=== PATIENT | female | born 1940 | race Caucasian/White ===

== ENCOUNTER 2016-07-10 08:55 | Outpatient (CLI) | payer OTHER ==
[~2016-07-10] VITALS: Ht 157.5 cm; Wt 100.5 kg
[~2016-07-10 08:55] MED LIST: ACET65TA OR; ASPI1TAB PO; ASPI325T OR; AZOPT OU; AZOPT PO; BIOT10005 PO; BISA10SU2; BRIM1OPD OU; CALC600T10 PO; CALCTAB93 PO; COUMADIN; DULCOLAX OR; FERR325T OR; FIBE625T27 PO; FURO20TA PO; FURO20TA2 PO; LUMIGAN OU; MECL-68 PO; METO50TA2 PO; METROPROLOL PO; MILKSUS OR; MULTIVIT PO; OXYC10TA12 OR; PERC5TAB8 OR; PERC7.5T8 OR; POTA10CA PO; TOVI8TAB PO; TRAV04OPD OD; VITMTA PO; [UNRECOGNIZED DRUG - OTHER]; fiber con PO
[2016-07-10] MEDS ORDERED: IRON DEXTRAN INJ 25 MG in NS 50 ML IV ONE (10:00)
[2016-07-10] MEDS ORDERED: IRON DEXTRAN INJ 975 MG in NS 250 ML IV ONE (11:00)
== END 2016-07-10 14:00 | disposition home or self-care (01) ==
LOC: M INFU 08:55
PROVIDERS: ATTEND Internal Medicine Nephrology
DX: D50.9 Iron deficiency anemia, unspecified (principal); Z79.82 Long term (current) use of aspirin; Z79.899 Other long term (current) drug therapy
CPT/HCPCS: 96365; 96366; J1750

== ENCOUNTER → 2017-04-03 | Outpatient (CLI) | payer OTHER ==
[~2017-04-03] MED LIST changes: -BIOT10005 PO; +BIOT10008 PO; -CALC600T10 PO; +CALC600T31 PO; -METO50TA2 PO; +METO50TA7 PO
--- NOTE | 2017-04-03 15:04 | REP ---
LEFT SHOULDER SERIES: Three views of the left shoulder are performed. There is no acute fracture or dislocation. There is mild narrowing and spurring at the acromioclavicular and glenohumeral joints. There is an oval calcification medial to the humeral neck measuring 13 x 5 mm. This could represent a tendinous or other soft tissue calcification. IMPRESSION: Degenerative changes. Signed by George Saucedo MD 04/03/2017 04:13 P
== END ==
LOC: M CLY 13:34
PROVIDERS: ATTEND Family Medicine
DX: M19.012 Primary osteoarthritis, left shoulder (principal)
CPT/HCPCS: 73030; G0463

== ENCOUNTER → 2017-07-09 | Outpatient (REF) | payer OTHER ==
[2017-07-09 19:52] LABS: ALBUMIN 3.5 GM/DL (3.2-5.2); ALBUMIN/GLOBULIN RATIO 0.85 (1.00-1.93); ALKALINE PHOSPHATASE 119 U/L (45-117); ALT/SGPT 12 U/L (12-78); ANION GAP 6 MEQ/L (8-16); AST/SGOT 11 U/L (7-37); BILIRUBIN,TOTAL 0.3 MG/DL (0.2-1.0); BLOOD UREA NITROGEN 30 MG/DL (7-18); CALCIUM LEVEL 8.8 MG/DL (8.8-10.2); CARBON DIOXIDE LEVEL 29 MEQ/L (21-32); CHLORIDE LEVEL 104 MEQ/L (98-107); CHOLESTEROL LEVEL 235 MG/DL (<200); CHOLESTEROL RISK RATIO 6.025 (<5); CREATININE FOR GFR 1.27 MG/DL (0.55-1.02); FREE T4 1.22 NG/DL (0.76-1.46); GLOMERULAR FILTRATION RATE 43.3 (>39); GLUCOSE, FASTING 93 MG/DL (83-110); HDL CHOLESTEROL 39 MG/DL (>40); LDL CHOLESTEROL 159.8 MG/DL (<100); NON-HDL-C 196 MG/DL; POTASSIUM SERUM 4.8 MEQ/L (3.5-5.1); SODIUM LEVEL 139 MEQ/L (136-145); TOTAL PROTEIN 7.6 GM/DL (6.4-8.2); TRIGLYCERIDES LEVEL 181 MG/DL (<150)
== END ==
LOC: M SFHCCLAY 11:53
DX: Z00.00 Encounter for general adult medical examination without abnormal findings (principal); Z79.899 Other long term (current) drug therapy
CPT/HCPCS: 84443

== ENCOUNTER → 2017-08-13 | Outpatient (REF) | payer OTHER ==
[2017-08-14 14:20] LABS: FERRITIN 331 NG/ML (8-252); IRON (FE) 31 UG/DL (50-170); PERCENT SATURATION 11.3 % (13.2-45.0); TOTAL IRON BINDING CAPACITY 275 UG/DL (250-450)
== END ==
LOC: M LAB REF 13:45
DX: N39.0 Urinary tract infection, site not specified (principal); D50.9 Iron deficiency anemia, unspecified
CPT/HCPCS: 83550

== ENCOUNTER 2017-08-26 08:57 | Outpatient (CLI) | payer OTHER ==
[2017-08-26] MEDS: IRON SUCROSE 25 MG in NS 50 ML IV (09:37)
[2017-08-26] MEDS: IRON SUCROSE 475 MG in NS 250 ML IV (10:46)
== END 2017-08-26 14:40 | disposition home or self-care (01) ==
LOC: M INFU 08:57
DX: D50.9 Iron deficiency anemia, unspecified (principal); Z95.4 Presence of other heart-valve replacement; Z85.038 Personal history of other malignant neoplasm of large intestine; Z79.82 Long term (current) use of aspirin; Z79.899 Other long term (current) drug therapy
CPT/HCPCS: J1756

== ENCOUNTER → 2017-11-09 | Outpatient (REF) | payer OTHER ==
[2017-11-09 19:20] LABS: FOLATE 8.8 NG/ML; VITAMIN B12 LEVEL 323 PG/ML
[2017-11-09 19:28] LABS: FERRITIN 387 NG/ML (8-252); IRON (FE) 48 UG/DL (50-170); PERCENT SATURATION 19.8 % (13.2-45.0); TOTAL IRON BINDING CAPACITY 243 UG/DL (250-450)
== END ==
LOC: M LAB REF 17:15
DX: D50.9 Iron deficiency anemia, unspecified (principal)
CPT/HCPCS: 82746

== ENCOUNTER → 2018-01-11 | Outpatient (REF) | payer OTHER ==
[2018-01-11 18:03] LABS: ANION GAP 11 MEQ/L (8-16); BLOOD UREA NITROGEN 29 MG/DL (7-18); CARBON DIOXIDE LEVEL 26 MEQ/L (21-32); CHLORIDE LEVEL 105 MEQ/L (98-107); CREATININE FOR GFR 1.39 MG/DL (0.55-1.30); GLOMERULAR FILTRATION RATE 38.9 (>39); GLUCOSE, FASTING 105 MG/DL (70-100); POTASSIUM SERUM 4.4 MEQ/L (3.5-5.1); SODIUM LEVEL 142 MEQ/L (136-145)
== END ==
LOC: M LRY 16:13
DX: I10 Essential (primary) hypertension (principal)
CPT/HCPCS: 80048

== ENCOUNTER → 2018-05-12 | Outpatient (REF) | payer OTHER ==
[2018-05-12 19:19] LABS: FERRITIN 446 NG/ML (8-252); IRON (FE) 66 UG/DL (50-170); PERCENT SATURATION 24.2 % (13.2-45.0); TOTAL IRON BINDING CAPACITY 273 UG/DL (250-450)
== END ==
LOC: M LAB REF 17:14
DX: D50.9 Iron deficiency anemia, unspecified (principal)
CPT/HCPCS: 83550

== ENCOUNTER → 2018-05-31 | Outpatient (CLI) | payer OTHER | LOC: M RAD 11:22 | DX: N17.9 Acute kidney failure, unspecified (principal); I50.32 Chronic diastolic (congestive) heart failure; I12.9 Hypertensive chronic kidney disease with stage 1 through stage 4 chronic kidney disease, or unspecified chronic kidney disease | CPT/HCPCS: 76775 ==

== ENCOUNTER 2018-10-15 22:29 | Inpatient (IN) | payer MEDICARE, OTHER ==
[~2018-10-15] VITALS: Ht 154.9 cm; Wt 100.0 kg
[~2018-10-15 22:29] MED LIST changes: -ASPI1TAB PO; +ASPI81TA26 PO; +KLOR10TA76 PO; -POTA10CA PO
[2018-10-15 23:08] LABS: BASO # 0.1 10^3/uL (0.0-0.2); BASO % 0.8 % (0.0-1.0); EOS # 0.4 10^3/uL (0.0-0.50); EOS % 4.4 % (0.0-3.0); HEMATOCRIT 34.8 % (36.0-47.0); LYMPH # 0.7 10^3/uL (1.5-4.5); MEAN CORPUSCULAR HEMOGLOBIN 29.2 pg (27.0-33.0); MEAN CORPUSCULAR HGB CONC 31.6 g/dl (32.0-36.5); MEAN CORPUSCULAR VOLUME 92.3 fl (80.0-96.0); MONO # 0.7 10^3/uL (0.0-0.8); MONO % 6.6 % (0.0-5.0); NEUTROPHILS # 8.1 10^3/uL (1.8-7.7); NEUTROPHILS % 80.7 % (36.0-66.0); PLATELET COUNT, AUTOMATED 309 10^3/uL (150-450); RED BLOOD COUNT 3.77 10^6/uL (4.00-5.40)
--- NOTE | 2018-10-15 23:29 | REPVR ---
EXAM: CT Head Without Contrast EXAM DATE/TIME: 10/15/2018 11:00 PM CLINICAL HISTORY: 78 years old, female; Signs and symptoms; Dizziness TECHNIQUE: Imaging protocol: Axial computed tomography images of the head/brain without contrast. Radiation optimization: All CT scans at this facility use at least one of these dose optimization techniques: automated exposure control; mA and/or kV adjustment per patient size (includes targeted exams where dose is matched to clinical indication); or iterative reconstruction. COMPARISON: CT Head without contrast 06/12/2016 2:47 PM FINDINGS: Brain: There is minimal patchy low attenuation of deep white matter. 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 Ventricles: Normal. No ventriculomegaly. Bones/joints: Unremarkable. No acute fracture. Sinuses: Visualized sinuses are unremarkable. No acute sinusitis. Mastoid air cells: Opacification of some left mastoid air cells. Auditory system: Debris in the left external auditory canal. Soft tissues: Unremarkable. IMPRESSION: 1. There has been little change from 06/12/2016. No acute interval intracranial process is identified. 2. Minimal chronic ischemic white matter change and small old right posterior cerebellar infarct. 3. Minimal fluid in left mastoid air cells at the tip. Electronically signed by: Samuel Madrid On 10/15/2018 23:29:14 PM
[2018-10-15 23:30] LABS: ALBUMIN 3.1 GM/DL (3.2-5.2); ALT/SGPT 19 U/L (12-78); BILIRUBIN,TOTAL 0.2 MG/DL (0.2-1.0); BLOOD UREA NITROGEN 32 MG/DL (7-18); CALCIUM LEVEL 8.3 MG/DL (8.8-10.2); CARBON DIOXIDE LEVEL 30 MEQ/L (21-32); CHLORIDE LEVEL 104 MEQ/L (98-107); GLOMERULAR FILTRATION RATE 30.8 (>32); GLUCOSE, FASTING 139 MG/DL (70-100); POTASSIUM SERUM 4.7 MEQ/L (3.5-5.1); SODIUM LEVEL 138 MEQ/L (136-145); TOTAL PROTEIN 7.4 GM/DL (6.4-8.2)
[2018-10-15] MEDS ORDERED: NS 500 ML IV ONE (23:30)
[2018-10-15] MEDS ORDERED: MECLIZINE 25 MG TABLET PO ONE (23:30)
[2018-10-16 00:05] LABS: INR 1.04; PARTIAL THROMBOPLASTIN TIME 27.9 SECONDS (25.4-37.6); PROTHROMBIN TIME 13.7 SECONDS (12.1-14.4)
[2018-10-16 00:14] LABS: CK-MB VALUE MASS < 1.0 NG/ML (<3.6); CPK CREATINE PHOSPHOKINASE 58 U/L (26-192); MB/CK RELATIVE INDEX 1.72 (< OR =4); TROPONIN I < 0.02 NG/ML (< 0.10)
[2018-10-16] MEDS ORDERED: TIMO0.5S39 OU (01:28)
[2018-10-16] MEDS ORDERED: BIOT10009 PO (01:28)
[2018-10-16] MEDS ORDERED: TOVI4TAB PO (01:28)
[2018-10-16] MEDS ORDERED: FIBE625T PO (01:31)
[2018-10-16] MEDS ORDERED: BRIM1OPD OU (01:56)
[2018-10-16 03:00] VITALS: BP 149/60
[2018-10-16] MEDS ORDERED: NYSTATIN 100,000 UNITS/GM TOPICAL PWD 15 GM TOP PRN (03:45)
--- NOTE | 2018-10-16 04:01 | HPEPDOC ---
General Date of Admission Oct 16, 2018 at 01:40 Chief Complaint The patient is a 78-year-old female admitted with a reason for visit of TIA. History of Present Illness 78-year-old female with past medical history of hypertension, dyslipidemia, aortic valve replacement, history of chronic vertigo, and grade 1 diastolic congestive heart failure presents to the ER with a chief complaint of slurring of speech, difficulty swallowing, and intractable vertigo of sudden onset yesterday evening around 5:30 PM. The patient states that she was talking on the phone when she realized that she was having difficulty speaking. The patient's daughter came home within 30 minutes, and also noted that the patient was slurring her speech and offered her a glass of water. The patient apparently had difficulty swallowing. During this time, the patient also had dizziness. The slurring of speech resolved within 30 minutes. However, some difficulty swallowing and the dizziness remains, although the patient states that this has significantly improved. She denied any acute complaints of visual blurring, facial droop, numbness/weakness/tingling in any extremity, or any bleeds of chest pain, palpitations, abdominal pain, or any nausea/vomiting/diarrhea. In the ER, a CT scan of the head revealed no acute findings. The patient will be admitted under the hospitalist service for further evaluation and management. Home Medications Scheduled Aspirin (Aspirin EC) 81 Mg Tab, 81 MG PO DAILY, (Reported) Biotin (Biotin) 1,000 Mcg Tab.chew, 1,000 MCG PO DAILY, (Reported) Brimonidine Tartrate (Alphagan P) 0.1% Drops, 1 DROP OU BID, (Reported) Calcium Polycarbophil (Fibercon) 625 Mg Tablet, 625 MG PO DAILY, (Reported) Fesoterodine Fumarate (Toviaz) 4 Mg Tab.er.24h, 4 MG PO QHS, (Reported) Meclizine HCl (Meclizine HCl) 25 Mg Tab, 25 MG PO BID, (Reported) Metoprolol Tartrate (Metoprolol Tartrate) 50 Mg Tab, 50 MG PO BID, (Reported) Timolol Maleate (Timolol Maleate) 0.5% Drop.daily, 1 DROP OU BID, (Reported) Travoprost (Travatan Z) 50 Drop/2.5 Ml Soln, 1 DROP OD QHS, (Reported) Scheduled PRN Furosemide (Furosemide) 20 Mg Tab, 20 MG PO Q2D PRN for FLUID RETENTION, (Reported) TAKES POTASSIUM WHEN SHE TAKES THIS Potassium Chloride (Klor-Con M10) 10 Meq Tabcr, 10 MEQ PO Q2D PRN for FLUID RETENTION, (Reported) TAKES WHEN SHE TAKES FUROSEMIDE Allergies Coded Allergies: No Known Allergies (Verified , 07/05/03) Past Medical History Medical History As noted in HPI. Surgical History Aortic valve replacement in 2008, right knee replacement in 2009 Social History * Smoker: Denies Alcohol: Denies Drugs: denies Review of Systems Other systems 10 point review of systems negative unless otherwise specified in HPI. Physical Examination General Exam: Positive: Alert, Cooperative, No Acute Distress Eye Exam: Positive: PERRLA, EOMI; Negative: Sclera icteric, Ptosis ENT Exam: Positive: Atraumatic, Mucous membr. moist/pink Neck Exam: Negative: JVD Chest Exam: Positive: Clear to auscultation, Normal air movement Heart Exam: Positive: Rate Normal, Normal S1, Normal S2 Abdomen Exam: Positive: Soft; Negative: Tenderness Extremity Exam: Negative: Tenderness, Swelling Neuro Exam: Positive: Normal Speech, Strength at 5/5 X4 ext, Normal Tone, Sensation Intact, Cranial Nerves 3-12 NL Psych Exam: Positive: Oriented x 3 Vital Signs Vital Signs Date Time Temp Pulse Resp B/P (MAP) Pulse Ox O2 Delivery O2 Flow Rate FiO2 10/16/18 02:46 98.3 84 20 117/59 (78) 91 Room Air Laboratory Data Labs 24H Laboratory Tests 2 10/15/18 23:00: Immature Granulocyte % (Auto) 0.5, White Blood Count 10.0, Red Blood Count 3.77L, Hemoglobin 11.0L, Hematocrit 34.8L, Mean Corpuscular Volume 92.3, Mean Corpuscular Hemoglobin 29.2, Mean Corpuscular Hemoglobin Concent 31.6L, Red Cell Distribution Width 13.2, Platelet Count 309, Neutrophils (%) (Auto) 80.7H, Lymphocytes (%) (Auto) 7.0L, Monocytes (%) (Auto) 6.6H, Eosinophils (%) (Auto) 4.4H, Basophils (%) (Auto) 0.8, Neutrophils # (Auto) 8.1H, Lymphocytes # (Auto) 0.7L, Monocytes # (Auto) 0.7, Eosinophils # (Auto) 0.4, Basophils # (Auto) 0.1, Nucleated Red Blood Cells % (auto) 0.0, Prothrombin Time 13.7, Prothromb Time International Ratio 1.04, Activated Partial Thromboplast Time 27.9, Anion Gap 4L, Glomerular Filtration Rate 30.8L, Blood Urea Nitrogen 32H, Creatinine 1.70H, Sodium Level 138, Potassium Level 4.7, Chloride Level 104, Carbon Dioxide Level 30, Calcium Level 8.3L, Aspartate Amino Transf (AST/SGOT) 15, Alanine Aminotransferase (ALT/SGPT) 19, Total Creatine Kinase 58, Alkaline Phosphatase 125H, Total Bilirubin 0.2, Total Protein 7.4, Albumin 3.1L, Creatine Kinase MB < 1.0, Creatine Kinase MB Relative Index 1.72, Troponin I < 0.02, Albumin/Globulin Ratio 0.72L CBC/BMP Laboratory Tests 10/15/18 23:00 Red Blood Count 3.77 L, Mean Corpuscular Volume 92.3, Mean Corpuscular Hemoglobin 29.2, Mean Corpuscular Hemoglobin Concent 31.6 L, Red Cell Distribution Width 13.2, Neutrophils (%) (Auto) 80.7 H, Lymphocytes (%) (Auto) 7.0 L, Monocytes (%) (Auto) 6.6 H, Eosinophils (%) (Auto) 4.4 H, Basophils (%) (Auto) 0.8, Neutrophils # (Auto) 8.1 H, Lymphocytes # (Auto) 0.7 L, Monocytes # (Auto) 0.7, Eosinophils # (Auto) 0.4, Basophils # (Auto) 0.1, Calcium Level 8.3 L, Aspartate Amino Transf (AST/SGOT) 15, Alanine Aminotransferase (ALT/SGPT) 19, Total Creatine Kinase 58, Alkaline Phosphatase 125 H, Total Bilirubin 0.2, Total Protein 7.4, Albumin 3.1 L Plan / VTE VTE Prophylaxis Ordered?: Yes Plan Plan Transient Dysarthria, Dysphagia possibly 2/[address] Head with no acute findings MRI Brain, U/S Carotids, and 2D ECHO ordered Aspirin increased to 324mg, Statin added Lipid Panel, HgbA1c ordered Serial Neurochecks Monitor on Telemetry Permissive HTN PT/OT/ST ordered Consider Neuro consult later in the AM depending on aforementioned pending studies Elevated Serum Cr in setting of CKD Stage III Baseline Cr appears to be 1.2-1.4 from last year (1.7 in the ER) Hold Lasix Gentle IVF Hydration given in the ER Repeat BMP in the AM Hx of Grade 1 Diastolic CHF Patient not decompensated Lasix held 2/2 above Hx of Chronic Vertigo Cont Meclizine as ordered Hx of Aortic Valve Replacement in 2008 DVT Prophylaxis Heparin HOSSEIN NOBLE MD Oct 16, 2018 04:01
[2018-10-16 06:00] VITALS: BP 141/73
[2018-10-16 06:35] LABS: HEMOGLOBIN 11.1 g/dl (12.0-15.5); MEAN CORPUSCULAR HEMOGLOBIN 28.5 pg (27.0-33.0); MEAN CORPUSCULAR HGB CONC 30.8 g/dl (32.0-36.5); MEAN CORPUSCULAR VOLUME 92.5 fl (80.0-96.0); PLATELET COUNT, AUTOMATED 319 10^3/uL (150-450); RED BLOOD COUNT 3.89 10^6/uL (4.00-5.40)
[2018-10-16 06:49] LABS: HEMOGLOBIN A1c 5.8 %
[2018-10-16 06:53] LABS: CALCIUM LEVEL 8.4 MG/DL (8.8-10.2); CHOLESTEROL RISK RATIO 5.153 (<5); CREATININE FOR GFR 1.5 MG/DL (0.55-1.30); GLOMERULAR FILTRATION RATE 35.6 (>32); POTASSIUM SERUM 4.7 MEQ/L (3.5-5.1)
[2018-10-16] MEDS: HEPARIN SOD (PORCINE) 5000 UNITS/ML VIAL SC SCH ×3 (07:00→20:19)
[2018-10-16] MEDS: ASPIRIN 325 MG TAB PO SCH (08:26)
[2018-10-16] MEDS: MECLIZINE 25 MG TABLET PO SCH ×2 (08:26→20:20)
[2018-10-16] MEDS ORDERED: ATORVASTATIN 20 MG TAB PO SCH (09:00)
[2018-10-16] MEDS: BRIMONIDINE 0.1% OPHTH SOLN 5 ML OU SCH ×2 (10:33→20:19)
[2018-10-16] MEDS ORDERED: NS 500 ML IV SCH (12:15)
[2018-10-16 13:15] VITALS: BP_SYST 111; BP_SYST 128; BP_DIAS 70; BP_DIAS 74
[2018-10-16] MEDS: TOPIRAMATE (TopAMAX) 25 MG TAB PO SCH ×2 (13:21→20:21)
[2018-10-16] MEDS ORDERED: ISOVUE-370 76% 100ML VIAL (Q9967) As Ordered ONE (16:21)
--- NOTE | 2018-10-16 16:23 | IPNPDOC ---
Date Seen The patient was seen on 10/16/18. Progress Note SUBJECTIVE: Patient complains of some vertigo since her MRI. She doesn't she did have this at the time of her admission but it didn't get better after receiving some IV fluids. She tells me that she still feels as though she has some difficulty swallowing and as if she has a lump in her throat OBJECTIVE PHYSICAL EXAMINATION: VITAL SIGNS: Please see below. GENERAL: Pleasant elderly female laying in bed at a 30 angle, and by 2 daughters and son-in-law she is in no distress HEENT: Cranial nerves II through XII appear to be grossly intact me tongue is midline face is symmetric, no nystagmus CARDIOVASCULAR: S1-S2 regular no additional heart sounds appreciated. RESPIRATORY: Clear to auscultation bilaterally. ABDOMINAL: Obese bowel sounds present abdomen soft EXTREMITIES: No clubbing cyanosis or edema Ordered pending MICROBIOLOGY: Please see below. Echocardiogram: Ordered pending. DVT prophylaxis ordered?: Heparin ASSESSMENT AND PLAN: This is a 78-year-old female with dysphagia dysarthria and vertigo. PROBLEMS: 1. Vertigo: Is a primary problem she complains about at this time, she has chronic vertigo and only treat with meclizine normally episodes last less than 20 seconds but lately they have a grown more frequent following MRI she become more dizzy off orthostatics checked his sugars improve with IV fluids yesterday I'll provide him some gentle IV hydration at this time. She does have some mild acute kidney injury I suspect that she may have some dehydration. Continue with neuro checks PTOT ordered as well she has been started on a statin or aspirin has been increased. She does have some chronic nature to this problem 2. Dysarthria and dysphagia: Speech therapy swallow evaluation has been ordered as well as neurology consult placed at this time MRI is been ordered as well as MRA to rule out any possible CVA as well as an echocardiogram will continue to monitor on remote telemetry I will add on a TSH. She certainly could've had a TIA as well. Recheck CT of the neck to evaluate for any masses versus space- occupying lesion. Follow-up carotid duplex 3. Acute kidney injury: Baseline approximately 1. 3 was 1.7 at the time of admission with pelvic diuretic dissection may have some dehydration and hypovolemia causing her vertigo continue with gentle IV fluid hydration monitor renal function which does appear to be slightly improved today. 4. Chronic Diastolic dysfunction: Well compensated at this time We are holding her diuretic as outlined above her blood pressure is well-controlled and echocardiogram has been ordered 5. Aortic valve replacement: Echo cardiac border does not appear to have any gross valvular abnormalities or functions based on physical exam she does not just prior. There is no new murmur DISPOSITION: Pending clinical improvement. VS, I&O, 24H, Fishbone Vital Signs/I&O Vital Signs Date Time Temp Pulse Resp B/P (MAP) Pulse Ox O2 Delivery O2 Flow Rate FiO2 10/16/18 14:10 2.0 10/16/18 13:15 78 128/74 (92) 92 111/70 (84) 10/16/18 06:00 98.6 20 98 10/16/18 02:46 Room Air I&O- Last 24 Hours up to 6 AM 10/16/18 06:00 Intake Total 500 ml Output Total 0 ml Balance 500 ml Laboratory Data 24H LABS Laboratory Tests 2 10/15/18 23:00: Immature Granulocyte % (Auto) 0.5, White Blood Count 10.0, Red Blood Count 3.77L, Hemoglobin 11.0L, Hematocrit 34.8L, Mean Corpuscular Volume 92.3, Mean Corpuscular Hemoglobin 29.2, Mean Corpuscular Hemoglobin Concent 31.6L, Red Cell Distribution Width 13.2, Platelet Count 309, Neutrophils (%) (Auto) 80.7H, Lymphocytes (%) (Auto) 7.0L, Monocytes (%) (Auto) 6.6H, Eosinophils (%) (Auto) 4.4H, Basophils (%) (Auto) 0.8, Neutrophils # (Auto) 8.1H, Lymphocytes # (Auto) 0.7L, Monocytes # (Auto) 0.7, Eosinophils # (Auto) 0.4, Basophils # (Auto) 0.1, Nucleated Red Blood Cells % (auto) 0.0, Prothrombin Time 13.7, Prothromb Time International Ratio 1.04, Activated Partial Thromboplast Time 27.9, Anion Gap 4L, Glomerular Filtration Rate 30.8L, Blood Urea Nitrogen 32H, Creatinine 1.70H, Sodium Level 138, Potassium Level 4.7, Chloride Level 104, Carbon Dioxide Level 30, Calcium Level 8.3L, Aspartate Amino Transf (AST/SGOT) 15, Alanine Aminotransferase (ALT/SGPT) 19, Total Creatine Kinase 58, Alkaline Phosphatase 125H, Total Bilirubin 0.2, Total Protein 7.4, Albumin 3.1L, Creatine Kinase MB < 1.0, Creatine Kinase MB Relative Index 1.72, Troponin I < 0.02, Albumin/Globulin Ratio 0.72L 10/16/18 05:59: Nucleated Red Blood Cells % (auto) 0.0, Anion Gap 6L, Glomerular Filtration Rate 35.6, Calcium Level 8.4L, Estimated Mean Plasma Glucose 120H, Hemoglobin A1c 5.8, Triglycerides Level 102, LDL Cholesterol 142H, Total Cholesterol 201H, Non- HDL Cholesterol (LDL + VLDL) 162, Total HDL Cholesterol 39L, Cholesterol/HDL Ratio 5.153H CBC/BMP Laboratory Tests 10/15/18 23:00 Red Blood Count 3.77 L, Mean Corpuscular Volume 92.3, Mean Corpuscular Hemoglobin 29.2, Mean Corpuscular Hemoglobin Concent 31.6 L, Red Cell Distribution Width 13.2, Neutrophils (%) (Auto) 80.7 H, Lymphocytes (%) (Auto) 7.0 L, Monocytes (%) (Auto) 6.6 H, Eosinophils (%) (Auto) 4.4 H, Basophils (%) (Auto) 0.8, Neutrophils # (Auto) 8.1 H, Lymphocytes # (Auto) 0.7 L, Monocytes # (Auto) 0.7, Eosinophils # (Auto) 0.4, Basophils # (Auto) 0.1, Calcium Level 8.3 L, Aspartate Amino Transf (AST/SGOT) 15, Alanine Aminotransferase (ALT/SGPT) 19, Total Creatine Kinase 58, Alkaline Phosphatase 125 H, Total Bilirubin 0.2, Total Protein 7.4, Albumin 3.1 L 10/16/18 05:59 Red Blood Count 3.89 L, Mean Corpuscular Volume 92.5, Mean Corpuscular Hemoglobin 28.5, Mean Corpuscular Hemoglobin Concent 30.8 L, Red Cell Distribution Width 13.1 LIVE BHANDARI MD Oct 16, 2018 16:23
--- NOTE | 2018-10-16 17:41 | REPVR ---
EXAM: CT Neck With Contrast EXAM DATE/TIME: 10/16/2018 4:54 PM CLINICAL HISTORY: 78 years old, female; Signs and symptoms; Dysphagia / difficulty swallowing TECHNIQUE: Imaging protocol: Axial computed tomography images of the neck with intravenous contrast. Coronal and sagittal reformatted images were created and reviewed. Radiation optimization: All CT scans at this facility use at least one of these dose optimization techniques: automated exposure control; mA and/or kV adjustment per patient size (includes targeted exams where dose is matched to clinical indication); or iterative reconstruction. Contrast material: ISOVUE 370; Contrast volume: 75 ml; Contrast route: IV; COMPARISON: US Duplex,carotid (complete) 10/16/2018 6:14 AM FINDINGS: Nasopharynx: Normal. Oropharynx: Normal. No significant tonsillar enlargement. Hypopharynx: Normal. Larynx: Normal. Normal epiglottis. Retropharyngeal space: Normal. Submandibular/Parotid glands: Normal. Glands are normal in size. Thyroid: Normal. No enlarged or calcified nodules. Lymph nodes: Normal. No lymphadenopathy. Trachea: Visualized trachea is unremarkable. Lungs: Small pleural effusions. Vasculature: No acute findings. Bones/joints: Degenerative spondylosis of the spine. Soft tissues: Stopping while Levoscoliosis. IMPRESSION: No acute findings. Electronically signed by: Scout Torrez On 10/16/2018 17:40:57 PM
[2018-10-16 19:55] LABS: THYROID STIMULATING HORMONE 1.55 uIU/ML (0.358-3.740)
[2018-10-16] MEDS: LATANOPROST 0.005% OPHTH SOLN 2.5 ML OD SCH (20:20)
[2018-10-16 22:00] VITALS: BP 134/56
[2018-10-17] VITALS (33 sets, daily range): BP systolic 61–230; BP diastolic 37–110; O2SAT 97
[2018-10-17 03:24] LABS: ABG BASE EXCESS -3.9 (-2.0-2.0); ABG HCO3 25.4 MEQ/L (22.0-26.0); ABG O2 SATURATION 99.1 % (95.0-99.0); ABG PARTIAL PRESSURE CO2 67.8 mmHg (35.0-45.0); ABG PARTIAL PRESSURE O2 172.3 mmHg (75.0-100.0); ABG STANDARD HCO3 21.2 MEQ/L (22.0-26.0); ABG TOTAL CO2 27.5 MEQ/L (23.0-31.0); ABG pH (ARTERIAL) 7.191 UNITS (7.350-7.450)
--- NOTE | 2018-10-17 04:34 | REPVR ---
EXAM: CT Head Without Contrast EXAM DATE/TIME: 10/17/2018 3:24 AM CLINICAL HISTORY: 78 years old, female; Signs and symptoms; Altered mental status/memory loss; Confusion or disorientation; Additional info: AMS TECHNIQUE: Imaging protocol: Axial computed tomography images of the head/brain without contrast. Radiation optimization: All CT scans at this facility use at least one of these dose optimization techniques: automated exposure control; mA and/or kV adjustment per patient size (includes targeted exams where dose is matched to clinical indication); or iterative reconstruction. COMPARISON: CT Head without contrast 10/15/2018 10:59 PM FINDINGS: Brain: There is minimal patchy low attenuation of deep white matter. Ventricles: Normal. No ventriculomegaly. Bones/joints: Unremarkable. No acute fracture. Sinuses: Visualized sinuses are unremarkable. No acute sinusitis. Mastoid air cells: Visualized mastoid air cells are unremarkable. No mastoid effusion. Auditory system: Debris in the left external auditory canal. Soft tissues: Unremarkable. Other findings: Motion artifact with image degradation. IMPRESSION: 1. Suboptimal exam due to motion artifact and image degradation. 2. Grossly, there has been little change from 10/15/2018. No gross acute interval intracranial process is identified. 3. Minimal chronic ischemic white matter change. Electronically signed by: Samuel Madrid On 10/17/2018 04:33:34 AM
[2018-10-17 04:55] LABS: HEMATOCRIT 38.2 % (36.0-47.0); HEMOGLOBIN 11.5 g/dl (12.0-15.5); MEAN CORPUSCULAR HEMOGLOBIN 28.4 pg (27.0-33.0); MEAN CORPUSCULAR HGB CONC 30.1 g/dl (32.0-36.5); MEAN CORPUSCULAR VOLUME 94.3 fl (80.0-96.0); PLATELET COUNT, AUTOMATED 315 10^3/uL (150-450); RED BLOOD COUNT 4.05 10^6/uL (4.00-5.40); WHITE BLOOD COUNT 14.5 10^3/uL (4.0-10.0)
[2018-10-17] MEDS: AMPICILLIN SOD/SULBACTAM SOD 3 GM in D5W MINI-BAG PLUS 100 ML IV SCH ×2 (05:05→17:00)
[2018-10-17] MEDS ORDERED: NS 250 ML IV ONE (05:15)
[2018-10-17] MEDS ORDERED: NS 1,000 ML IV SCH (05:15)
--- NOTE | 2018-10-17 05:19 | IPNPDOC ---
Text Note Date of Service The patient was seen on 10/17/18. NOTE NIGHT FLOAT NOTE RAT called on patient around 0245 this am for increased lethargy and left fixed dilated pupil noted by staff. She was noted to be tachycardic in the 120s, hypertensive with BP 200/100s, and tachypneic in 30s. Chart reviewed, pt examined at bedside. Noted to be on nonrebreather, anxious, initially A&O, able to state her name and that she is in hospital. She was able to follow commands and strength intact throughout. Left pupil noted to be dilated and fixed, right pupil equal round reactive to light. No slurred speech or facial droop or focal deficits. Head CT negative. ABG reveals respiratory acidosis 7.191/67.8/25.4. Patient transferred to ICU and started on BiPAP. Per reports, she is to be on CPAP at night, however it is unclear if she had pulled off her mask, and for how long. Reassessed in ICU. Lethargy continues, and left pupil remains dilated and fixed. Continue neuro checks. She has been started on Unasyn for suspected aspiration given that she was found to have copious amounts of secretions. Also reported to have soft bp, and will be started on IVF. Orders placed, workup pending. Pulmonology has been consulted and agrees with current plan. Patient's 2 daughters were updated regarding her health at bedside, all Qs answered. They confirm she is FULL CODE and want all interventions done, including intubation a nd CPR if needed. VS,Fishbone, I+O VS, Fishbone, I+O Laboratory Tests 10/16/18 05:59 Red Blood Count 3.89 L, Mean Corpuscular Volume 92.5, Mean Corpuscular Hemoglobin 28.5, Mean Corpuscular Hemoglobin Concent 30.8 L, Red Cell Distribution Width 13.1 10/17/18 04:37 Red Blood Count 4.05, Mean Corpuscular Volume 94.3, Mean Corpuscular Hemoglobin 28.4, Mean Corpuscular Hemoglobin Concent 30.1 L, Red Cell Distribution Width 12.9 Vital Signs Date Time Temp Pulse Resp B/P (MAP) Pulse Ox O2 Delivery O2 Flow Rate FiO2 10/17/18 03:54 96.0 122 26 230/110 93 10/17/18 03:49 60 10/17/18 03:49 BIPAP/CPAP 10/16/18 22:00 2.0 I&O- Last 24 Hours up to 6 AM 10/17/18 06:00 Intake Total 1680 ml Output Total 0 ml Balance 1680 ml GME ATTESTATION GME ATTESTATION My faculty preceptor for this patient encounter was physically present during the encounter and was fully available. All aspects of the patient interview, examination, medical decision making process, and medical care plan development were reviewed and approved by the faculty preceptor. The faculty preceptor is aware and concurs with the plan as stated in the body of this note and will attest to such by his/her cosignature. ATTENDING NOTE Rapid assessment team called at approximately 3 AM for alteration in mental status and left pupil changes with garbled speech. Upon arrival, the patient was noted to be flailing her extremities and in some respiratory distress. She was placed on a nonrebreather. She is able to follow commands and moves all extremities appropriately and is able to tell me her full name and is oriented t o place, but her mentation is waxing/waning. Of note, the patient was admitted for concerns of TIA/CVA with symptoms of dysphagia and dysarthria on arrival to the ER. Work up until this point has included a negative CT Head on admission and a follow up MRI of the Brain suggestive of a subacute infarct in the left parietal lobe. Given the patient's increased left pupil size (7mm) vs right (5mm), we will order a CT Scan of the Head to follow up for a possible progression of underlying CVA. ABG ordered to r/o underlying hypercapneic respiratory failure. Update 3:30 am: ABG notable for hypercapnic respiratory failure with a pH of 7.19 and CO2 of 67.8. The patient has been started on a trial of BiPAP. The case was discussed with Dr. Dowling of Pulmonary via telephone and we will follow up with a repeat ABG at 5am. CT Head results noted to be suboptimal given patient's movement, but with no grossly abnormal changes compared to previous. I did have a family meeting with the patient's daughters Poonam Ramirez ([facility]) and Susie Johansen at the bedside and they have been made aware of the patient's critical condition and transfer to the ICU. They confirmed full code status and verbalized understanding that further respiratory compromise would result in intubation and mechanical ventilation. Risks, benefits, and alternative options were discussed at length, and all questions were answered to their satisfaction. ALPHONSO ELIAS DO Oct 17, 2018 05:19 HOSSEIN GALLARDO MD Oct 17, 2018 05:32
[2018-10-17 05:20] LABS: BILIRUBIN,TOTAL 0.4 MG/DL (0.2-1.0); CALCIUM LEVEL 8.4 MG/DL (8.8-10.2); CREATININE FOR GFR 1.7 MG/DL (0.55-1.30); GLOMERULAR FILTRATION RATE 30.8 (>32); POTASSIUM SERUM 4.6 MEQ/L (3.5-5.1); TOTAL PROTEIN 7.8 GM/DL (6.4-8.2)
[2018-10-17 05:37] LABS: ABG BASE EXCESS -1.8 (-2.0-2.0); ABG HCO3 24.6 MEQ/L (22.0-26.0); ABG O2 SATURATION 99.4 % (95.0-99.0); ABG PARTIAL PRESSURE CO2 49.2 mmHg (35.0-45.0); ABG PARTIAL PRESSURE O2 191.5 mmHg (75.0-100.0); ABG TOTAL CO2 26.1 MEQ/L (23.0-31.0); ABG pH (ARTERIAL) 7.317 UNITS (7.350-7.450)
[2018-10-17 05:52] LABS: C REACTIVE PROTEIN QUANTITATIV 6.45 MG/DL (0.00-0.30); MB/CK RELATIVE INDEX 3.27 (< OR =4); TROPONIN I 0.06 NG/ML (< 0.10)
[2018-10-17] MEDS: HEPARIN SOD (PORCINE) 5000 UNITS/ML VIAL SC SCH ×3 (06:10→20:15)
--- NOTE | 2018-10-17 07:08 | REP ---
MRI BRAIN WITHOUT CONTRAST: HISTORY: TIA. COMPARISON: MR 02/03/[address] 10/15/2018. A punctate focus of increased signal intensity on diffusion and T2-weighted images is present in the posterior left parietal lobe. This is isointense in signal intensity on ADC images and is consistent with a subacute infarction. Areas of increased signal intensity on T2-weighted images are present in the cerebellum and left basal ganglia. These represent old lacunar infarctions. Areas of increased signal intensity on T2-weighted images are present in the periventricular and subcortical white matter. This represents small vessel ischemic disease. There is no intraparenchymal hemorrhage, acute infarct, mass or midline shift. The ventricular system and cortical sulci are dilated consistent with mild volume loss. There is no extracerebral _ collection __. The sinuses are clear. IMPRESSION: 1. Punctate subacute left parietal lobe infarction. 2. 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 3. Small vessel ischemic disease. 4. Mild volume loss. Electronically Signed by Sd Pond MD 10/18/2018 08:22 A
[2018-10-17] MEDS: ASPIRIN 325 MG TAB PO SCH (09:00)
[2018-10-17] MEDS: MECLIZINE 25 MG TABLET PO SCH ×2 (09:00→19:40)
--- NOTE | 2018-10-17 09:08 | REP ---
Portable chest, 12:05 a.m., single AP view, the patient is semi upright: Comparison is 06/13/2016. The costophrenic angles are mildly effaced in the interval change suggestive of small bilateral pleural effusions. Sternotomy wires, cardiomegaly and cardiac valve replacement are unchanged. Lung romero otherwise clear. Thoracic scoliosis convex right at the thoracolumbar junction, unchanged. Impression: Small bilateral pleural effusions as an interval change. Electronically Signed by George Begum MD 10/16/2018 07:56 A
--- NOTE | 2018-10-17 09:09 | REP ---
Bilateral carotid artery duplex ultrasound: Peak flow velocity analysis: RIGHT LEFT ICA Peak flow velocity cm/sec 72.2 90.8 ICA Diastolic flow velocity cm/sec 21.3 25.6 ICA/CCA Ratio 0.65 0.97 ECA Peak flow velocity cm/sec 74.4 148.3 CCA Peak flow velocity cm/sec 112.9 110.2 There is no visible atheromatous plaque on the right on the left. The peak flow velocities are normal except that the left ECA is mildly elevated, possibly from vessel tortuosity in the absence of atheromatous plaque. There is no stenosis on the right on the left. There is antegrade flow in the vertebral arteries bilaterally. The study is technically difficult and the distal internal carotid arteries could not be visualized because of high bifurcations. Electronically Signed by George Begum MD 10/16/2018 08:11 A
[2018-10-17] MEDS ORDERED: NS 500 ML IV ONE (09:15)
[2018-10-17] MEDS ORDERED: NS 1,000 ML IV ONE (09:15)
[2018-10-17] MEDS: BRIMONIDINE 0.1% OPHTH SOLN 5 ML OU SCH ×2 (09:46→20:15)
--- NOTE | 2018-10-17 10:06 | REP ---
REASON: Hypercapnia. COMPARISON: Multiple, latest 10/15/2018. The technique utilized in obtaining the radiograph has magnified the cardiac silhouette and accentuated the interstitial markings. There is cardiomegaly status quo. There has been previous median sternotomy. There is a diffuse increase in the interstitial markings which may have increased from the prior exam when the technical differences between the examinations are taken into consideration. Bilateral basilar opacities are noted status quo. IMPRESSION: Possible interstitial edema and other findings as described above. Correlate clinically. Electronically Signed by Darian Mckeon DO 10/17/2018 01:49 P
--- NOTE | 2018-10-17 11:53 | IPNPDOC ---
Date Seen The patient was seen on 10/17/18. Progress Note SUBJECTIVE: Patient moans and answers questions by nodding her head, she is able to tell me that she feels better. Patient denies chest pain, she unable to have a full conversation while wearing the bipap but is able to answer that she is in the hospital OBJECTIVE PHYSICAL EXAMINATION: VITAL SIGNS: Please see below. GENERAL: elderly female laying in bed at a 45 angle, accompanied by by 2 daughters she is in no distress HEENT: Cranial nerves II through XII appear to be grossly intact me tongue is midline face is symmetric, no nystagmus difficult to assess while wearing BiPAP CARDIOVASCULAR: S1-S2 regular no additional heart sounds appreciated. RESPIRATORY: Clear to auscultation bilaterally. ABDOMINAL: Obese bowel sounds present abdomen soft EXTREMITIES: No clubbing cyanosis or edema Ordered pending MICROBIOLOGY: Please see below. Echocardiogram: Ordered pending. DVT prophylaxis ordered?: Heparin ASSESSMENT AND PLAN: This is a 78-year-old female with dysphagia dysarthria, vertigo hypercapnic respiratory failure. PROBLEMS: 1. Hypercapnic respiratory failure: Patient's arterial blood gas and clinically is doing much better than overnight, apparently she became confused and difficult to arouse and was found to be hypercapnic and was transferred down to the medical intensive care unit for BiPAP, pulmonary critical care was consulted and their help is greatly appreciated. She does not present with restaurant complaints and yesterday she was doing quite well. I see no clear history of congestive heart failure she did receive 2 gentle boluses over the last 24 hours prior to her respiratory decompensation associated concern for pulmonary edema chest x-ray for this morning as well as BNP of been ordered. She does have a history of a prosthetic valve I have spoken to Dr. Tinoco of cardiology was assured me that her hypercapnia is a sign that she is not in decompensated heart failure as well as her chest x-ray does not appear to be different to him upon reviewing the previous ones. He feels though she is not having any acute cardiac issue would recommend pulmonary consultation which is been ordered as outlined above. I did request that he review her echocardiogram should be able to be completed today. I did express my concern about providing her further IV fluids given her soft blood pressures in the setting of worsening respiratory status he felt that her ability to tolerate it this morning was indicative of a non- congestive heart failure state we did speak at great length and he reviewed the chart on the phone with me we had 2 conversations regarding this patient this morning. She has no history of obstructive sleep apnea I do not suspect that her small subacute CVA which resulted in respiratory depression. I did speak with Dr. Dowling this morning who confirmed she will see the patient. It is certainly possible that she did present with dysarthria and dysphagia she may have aspirated and as such she has been started on Unasyn. She did receive 2 doses of Topamax which can cause some mild sedation I do not think that this is the etiology for her change in Mr. status however for the time being I will hold this new medication continue with aspirin and statin 2. Subacute CVA Dysarthria and dysphagia: Speech therapy swallow evaluation has been ordered as well as neurology consult placed at this time as well as an echocardiogram has been ordered as outlined above will continue to monitor. Carotid duplex and CT of the neck were unrevealing. She is on an aspirin and statin 3. Acute kidney injury: Baseline approximately 1. 3 was 1.7 at the time of admission her home diuretic was held that she was orthostatic to the point that she was unable to stand yesterday with symptomatic with vertigo prompting administration of IV fluids and holding of her diuretic. Renal function is stable today we'll continue to monitor closely 4. Chronic Diastolic dysfunction: Yesterday he appeared well compensated I do have some mild concern she may have injured some diastolic congestive heart failure today but I did discuss at length with Dr. Tinoco who assured me this is likely not the case he has reviewed her chart with me 5. Aortic valve replacement: Echo cardiac border does not appear to have any gross valvular abnormalities or functions based on physical exam she does not just prior. There is no new murmur await echocardiogram results DISPOSITION: Prognosis remains guarded VS, I&O, 24H, Fishbone Vital Signs/I&O Vital Signs Date Time Temp Pulse Resp B/P (MAP) Pulse Ox O2 Delivery O2 Flow Rate FiO2 10/17/18 10:15 100 100/76 (84) 99 40 10/17/18 08:00 98.3 20 10/17/18 03:49 BIPAP/CPAP 10/16/18 22:00 2.0 I&O- Last 24 Hours up to 6 AM 10/17/18 06:00 Intake Total 1680 ml Output Total 20 ml Balance 1660 ml Laboratory Data 24H LABS Laboratory Tests 2 10/17/18 02:58: Bedside Glucose (Misc Panel) 214H 10/17/18 03:07: Blood Gas Bicarbonate Standard 21.2L, Arterial Blood pH 7.191*L, Arterial Blood Partial Pressure CO2 67.8*H, Arterial Blood Partial Pressure O2 172.3H, Arterial Blood Total CO2 27.5, Arterial Blood HCO3 25.4, Arterial Blood Base Excess - 3.9L, Arterial Blood Oxygen Saturation 99.1H 10/17/18 04:37: Nucleated Red Blood Cells % (auto) 0.0, Anion Gap 7L, Glomerular Filtration Rate 30.8L, Blood Urea Nitrogen 31H, Creatinine 1.70H, Sodium Level 139, Potassium Level 4.6, Chloride Level 105, Carbon Dioxide Level 27, Calcium Level 8.4L, Aspartate Amino Transf (AST/SGOT) 18, Alanine Aminotransferase (ALT/SGPT) 22, Total Creatine Kinase 61, Alkaline Phosphatase 124H, Total Bilirubin 0.4#, Total Protein 7.8, Albumin 3.0L, Magnesium Level 2.0, Creatine Kinase MB 2.0, Creatine Kinase MB Relative Index 3.27, Troponin I 0.06#, C-Reactive Protein, Quantitative 6.45H, Albumin/Globulin Ratio 0.63L 10/17/18 05:27: Blood Gas Bicarbonate Standard 23.0, Arterial Blood pH 7.317L, Arterial Blood Partial Pressure CO2 49.2H, Arterial Blood Partial Pressure O2 191.5H, Arterial Blood Total CO2 26.1, Arterial Blood HCO3 24.6, Arterial Blood Base Excess -1.8, Arterial Blood Oxygen Saturation 99.4H 10/17/18 05:30: Lactic Acid Level 1.8 CBC/BMP Laboratory Tests 10/17/18 04:37 Red Blood Count 4.05, Mean Corpuscular Volume 94.3, Mean Corpuscular Hemoglobin 28.4, Mean Corpuscular Hemoglobin Concent 30.1 L, Red Cell Distribution Width 12 .9, Calcium Level 8.4 L, Aspartate Amino Transf (AST/SGOT) 18, Alanine Aminotransferase (ALT/SGPT) 22, Total Creatine Kinase 61, Alkaline Phosphatase 124 H, Total Bilirubin 0.4 #, Total Protein 7.8, Albumin 3.0 L Microbiology Microbiology 10/17/18 Blood Culture, Received Pending 10/17/18 Blood Culture, Received Pending LIVE BHANDARI MD Oct 17, 2018 11:53
[2018-10-17] MEDS ORDERED: LORazepam 1 MG TAB PO PRN (19:00)
[2018-10-17] MEDS ORDERED: ATROPINE SULFATE 1% OP SOLN 2 ML BTL SL PRN (19:00)
[2018-10-17] MEDS ORDERED: ONDANSETRON 4MG/2ML VIAL (J2405) IV PRN (19:00)
[2018-10-17] MEDS ORDERED: LORazepam 2 MG/ML VIAL (J2060) IV PRN ×2 (19:00→19:30)
[2018-10-17] MEDS: MORPHINE 4 MG/ML 1ML VIAL/SYRINGE (J2270) IV PRN ×2 (19:17→20:49)
[2018-10-17] MEDS: LATANOPROST 0.005% OPHTH SOLN 2.5 ML OD SCH (20:14)
--- NOTE | 2018-10-17 20:20 | CR ---
DATE OF CONSULTATION: 10/16/2018 REFERRING PHYSICIAN: Dr. oDmenic Patel REASON FOR CONSULTATION: Slurred speech and dizziness. HISTORY OF PRESENT ILLNESS: Yana Wood is an 78-year-old woman with history of chronic dizziness, aortic valve replacement 2008 who was at her baseline state of health until yesterday night when she developed slurred speech, difficulty swallowing and dizziness. The patient was talking on phone and realized that she had difficulty speaking. Her daughter came to her house within 30 minutes. She noted slurred speech as well. The patient had difficulty swallowing a glass of water. She felt dizziness described as losing control of her body without spinning sensation. Her slurred speech resolved after 30 minutes. She continues to have difficulty swallowing and dizziness. She denies any headaches, neck or back pain. She denies any seizures. She felt nausea but no vomiting. She describes her dizziness as losing control of her body. She denies any spinning sensation. She has had dizziness since her aortic valve replacement in 2008. It happens occasionally. She takes meclizine as needed. She had three dizzy spells over the last 1 week and worst last night. DIAGNOSTIC STUDIES: CT scan of her head was unremarkable. MRI brain and carotid ultrasound have been done but results are pending. HOME MEDICATIONS: - aspirin 81 mg by mouth daily - calcium - meclizine 25 mg by mouth twice a day - metoprolol 50 mg by mouth twice a day - timolol 0.5% drops in both eyes twice a day - Travoprost one drop in right eye once a day - metoprolol 50 mg by mouth twice a day - meclizine 25 mg by mouth twice a day - Toviaz 4 mg by mouth daily - FiberCon - Lasix 20 mg by mouth every other day as needed for fluid retention - potassium chloride 10 mEq by mouth every other day ALLERGIES: None. PAST MEDICAL HISTORY: Congestive heart failure, aortic valve replacement with a bovine valve, hypertension, dyslipidemia, dizziness. SOCIAL HISTORY: She denies smoking, alcohol or illicit drugs. FAMILY HISTORY: Noncontributory. REVIEW OF SYSTEMS: All systems were reviewed and found to be noncontributory except as mentioned in history of present illness. PHYSICAL EXAMINATION: Temperature 98.3, pulse 84,respiratory rate 20, blood pressure 117/59, 91% saturations on room air. Heart: Regular rate and rhythm. Lungs: Clear to auscultation. Abdomen: Soft, nontender, nondistended. No pedal edema. No musculoskeletal abnormalities. No rash. No signs of meningeal irritation. No tremor or dysmetria. No nystagmus. The patient is awake, alert, oriented to place, person and time. Normal speech comprehension and repetition. Extraocular muscles are intact. No facial weakness. Tongue and uvula are midline. 5/5 strength in all four extremities. Recent and distant memory is intact. Deep tendon reflexes are 1+ throughout. Plantars are downgoing. LABORATORY RESULTS: Creatinine 1.5, WBCs 11, hemoglobin 11.1, LDL 142 and HDL 39. ASSESSMENT: 1. Suspected transient ischemic attack. 2. Dizziness, slurred speech and swallowing difficulty, possibly related to above. 3. Chronic dizziness. PLAN: 1. Aspirin 325 mg by mouth daily and Crestor 10 mg by mouth daily. The patient had muscle aches with Lipitor in past. 2. Topamax 25 mg by mouth twice a day for dizziness. 3. MRI brain and carotid ultrasound reports are pending. 4. Echocardiogram. 5. Physical and occupational therapy.
--- NOTE | 2018-10-17 20:35 | ECGEPIP ---
Stationary ECG Study [facility] - ED Test Date: 2018-10-15 Pat Name: BRADY MORALES Department: Room: [place] [address] Gender: F [employer] Operator: ASHLEY : 1940 Requested By: ZAINAB Hughes Order Number: [id number] Reading MD: Devora Castanon Measurements Intervals Letcher Rate: 72 P: 28 NV: 163 QRS: 93 QRSD: 124 T: 25 QT: 444 QTc: 487 Interpretive Statements SINUS RHYTHM POSSIBLE LEFT ATRIAL ENLARGEMENT RIGHT BUNDLE BRANCH BLOCK PROLONGED QTC CLINICAL CORRELATION Electronically Signed On 10-17-2018 20:35:11 EDT by Devora Castanon
[2018-10-17] MEDS ORDERED: ROSUVASTATIN 10 MG TAB (CRESTOR) PO SCH (21:00)
--- NOTE | 2018-10-18 06:15 | ECHO ---
DATE OF PROCEDURE: 10/17/2018 AGE: 78 GENDER: Female HEIGHT: 61 inches WEIGHT: 220 pounds BODY SURFACE AREA: 1.97 meters squared INPATIENT: ICU Room 3208 REFERRING PHYSICIAN: Dr. George INDICATION: Transient ischemic attack (TIA). Respiratory distress. MEASUREMENTS 2-D Measurements: RV: 4.8 cm LV: 3.6 cm Septum: 1.1 cm Posterior wall: 1.1 cm Aortic root: 2.9 cm LA: 5.6 cm LVEF 65% Doppler Measurements: AV: 2.99 m/s LVOT: 1.99 m/s LVOT diameter: 2.0 cm Mean AV systolic gradient: 15 mmHg Dimensionless index: 0.52 MV - E 280 A 320 EA ratio: 0.9 Mean MV diastolic gradient: 22 mmHg PV: 0.87 m/s Pulmonary artery acceleration time: 74 ms RVSP: 95-100 mmHg IVC: 2.6 cm COMMENTS: Normal sinus rhythm without intraventricular conduction disturbance. M-mode and two-dimensional echocardiography was performed with pulsed, continuous wave, color flow and tissue Doppler studies. Normal left ventricular size with wall thickness upper limits of normal. Somewhat hyperkinetic wall motion except for a localized septal region suspected to be related to right ventricular pressure overload, yet overall global systolic function remained hyperkinetic. Prominently dilated left atrium. Moderately dilated right heart chambers with reduced right ventricular free wall motion and Doppler evidence of very severe pulmonary hypertension. Mildly dilated inferior vena cava with absent respiratory collapse in keeping with a significantly elevated central venous pressure/right heart failure. Appropriate function of a bioprosthetic aortic valve. Normal aortic root size. Severe mitral annular calcification and thickening of the mitral leaflets with reduced leaflet excursion and impressive gradient consistent with severe mitral stenosis. There was very mild mitral insufficiency. Normal appearing tricuspid valve with at least moderate insufficiency. No apparent intracardiac mass or pericardial effusion. Comparing with study from 2016, the degree of mitral stenosis has increased and pulmonary arterial pressure has significantly increased. A preliminary report of this study was relayed directly to Dr. Patel. [facility]
--- NOTE | 2018-10-18 07:34 | REP ---
REASON FOR CHEST CT: Dysphagia. COMPARISON: None. No contrast. Lack of intravenous contrast significantly decreases the sensitivity of the exam. There is significant motion artifact throughout the examination further limiting it. There are bilateral pleural effusions, which are moderate. Asymmetric opacities are seen scattered throughout the lung romero with basilar predominance and evidence of bibasilar lung field consolidation. Atelectasis versus pneumonia, versus both. There is left atrial enlargement. There is mediastinal and most likely hilar adenopathy, which is difficult to evaluate without intravenous contrast. The imaged upper abdomen shows a potential right renal cyst, only partially imaged on this limited chest CT. The osseous structures showed advanced bony demineralization. There are chronic spinal degenerative changes. IMPRESSION: 1. Bilateral pleural effusions. 2. Bilateral lung consolidation as described above. 3. Other findings as described above. Electronically Signed by Darian Mckeon DO 10/18/2018 01:59 P
--- NOTE | 2018-10-18 11:42 | CR ---
DATE OF CONSULTATION: 10/17/2018 CHIEF COMPLAINT: I was asked by Dr. George to emergently evaluate Ms. Wood for acute hypercapnic respiratory failure and then subsequently hypotension. HISTORY OF PRESENT ILLNESS: Ms. Wood is an 78-year-old white female whose past medical history is most significant for mitral stenosis, hypertension, pulmonary hypertension, diastolic congestive heart failure (CHF), and obstructive sleep apnea. She presented to the emergency room yesterday because of slurring of her speech, difficulty swallowing and intractable vertigo. She was found to have a subacute CVA. Last evening, she did not wear her continuous positive airway pressure (CPAP) device. She became increasingly lethargic and had a left fixed dilated pupil, was hypertensive, tachycardic and tachypneic and a RAT was called. An arterial blood gas at that time was 7.19/68/25 and she was transferred to the intensive care unit and started on noninvasive mechanical ventilation (NIMV). I attempted to find her baseline CPAP setting but was unable to do so last evening. Nonetheless, she corrected her acidemia overnight with her blood gas 7.32/49 this morning. Clinically, she will nod yes or no to questions but her speech was unintelligible. She seems to indicate no discomfort but she still feels short of breath. She denied chest pain, nausea or abdominal pain. Her blood pressure remained with low systolic but mean arterial pressure (MAP) for the most part in the mid 60s, then her MAP dropped down into 50s. An emergent echocardiogram was obtained, which per verbal report, was not significantly different than one done 2 weeks ago, though in hearing the numbers perhaps her pulmonary hypertension was worse. Nonetheless, she has severe mitral stenosis and at least moderately if not severe pulmonary hypertension. ALLERGIES: NO KNOWN DRUG ALLERGIES. MEDICATIONS ON ADMISSION: - aspirin 81 mg by mouth daily - Biotin 1,000 mcg by mouth daily - Alphagan P one drop both eyes twice a day - calcium polycarbophil 625 mg by mouth every day - Toviaz 4 mg by mouth nightly - Lasix 20 mg by mouth every other day as needed - meclizine 25 mg by mouth twice a day - metoprolol 50 mg by mouth twice a day - Klor-Con 10 mEq by mouth every other day as needed - Timolol 0.5% drop both eyes twice a day - Travatan Z on drop right eye nightly PAST MEDICAL HISTORY: 1. Mitral stenosis, severe, 2. Status post aortic valve replacement 2008. 3. Dyslipidemia. 4. Hypertension. 5. Hypertension. 6. Grade 1 diastolic CHF. 7. Chronic vertigo. 8. Obstructive sleep apnea (MICAELA). 9. Morbid obesity. 10. Status post right knee replacement 2009. 11. History of colon cancer 2001. 12. CAD status post CABG 2008. 13. Status post bilateral cataract surgery. SOCIAL HISTORY: Ms. Wood does not smoke or drink alcohol. I do not know her past history in this regard. FAMILY HISTORY: Unobtainable at this time secondary to full face mask and slurred, unintelligible speech. Review of systems is contained in the history of present illness (HPI) based on yes and no questions. PHYSICAL EXAMINATION: GENERAL: Ms. Wood is lying in bed with a full face mask in place. She is moaning, which per family is normal for her. She has unintelligible speech. VITAL SIGNS: Temperature 98.3, which is her maximum temperature (Tmax), respiratory rate 20s, blood pressure 100/76 with a mean arterial pressure (MAP) of 84, pulse 100, SpO2 99% and FiO2 of 0.4 via a bilevel device of 14/7. HEENT: Anicteric. Right pupil 3 mm and sluggish. Left pupil 5 mm and sluggish. Nares and oropharynx not examined secondary to full face mask. NECK: Supple. Positive jugular venous distention (JVD). Trachea is midline. LYMPHS: Without cervical or supraclavicular lymphadenopathy. LUNGS: Symmetric excursion, mildly diminished air entry, absent breath sounds at the bases with minimal fine crackles above the bases bilaterally. No rhonchi or wheeze. Normal I:E. No accessory muscle use or retractions. CARDIOVASCULAR: Tachycardic, regular rhythm with a normal S1, S2. No murmur, rub or gallop appreciated though exam difficult secondary to background noise. ABDOMEN: Positive bowel sounds. Soft, nondistended. No hepatosplenomegaly. She does not seem to indicate tenderness. EXTREMITIES: Warm and well perfused, without clubbing, cyanosis or significant edema. Palpable pedal pulses bilaterally. LABORATORY DATA: CBC shows a hemoglobin 11.5, hematocrit 38.2, platelet count 315,000, white blood cell count 14,500. Chemistries show sodium 139, potassium 4.6, chloride 105, bicarbonate 27, anion gap 7, BUN 31, creatinine 1.7, glucose 181, lactic acid 1.8, calcium 8.4, magnesium 2.0, total bilirubin 0.4, AST 18, ALT 22, alkaline phosphatase 124, CK 61. Troponin I 0.06 with a repeat later on of 0.13, CRP 6.45, BNP 16,092, total protein 7.8, albumin 3.0. Arterial blood gas this morning was 7.19/68/172 with a measured saturation of 99% and a base excess of -3.9. I do not know how much oxygen it was drawn on. Repeat after being on bilevel device of 09/01 and a FiO2 of 0.4 was 7.32/49/192 with a measured saturation 99% and a base excess of -1.8. I reviewed her chest x-ray as well as the report from earlier today. That x-ray showed enlarged cardiac silhouette and enlarged pulmonary vascular shadows. There was bilateral interstitial infiltrates. I reviewed her chest CT scan done earlier today. That CT scan showed an enlarged cardiac silhouette and pulmonary vascular shadows. There were bilateral pleural effusions and compressive atelectasis of the left lower lobe. There was a mosaic pattern within the remaining lung structure. IMPRESSION: 1. Acute hypercapnic respiratory failure likely in part secondary to untreated obstructive sleep apnea but also secondary to congestive heart failure. 2. Congestive heart failure. 3. Severe mitral stenosis. 4. Pulmonary hypertension, likely severe. 5. Hypotension. 6. Subacute CVA this admission. 7. Obstructive sleep apnea. 8. Morbid obesity. RECOMMENDATIONS: 1. Unfortunately, with her pulmonary hypertension and severe mitral stenosis she needs a significant filling pressure; on the other hand, she also has CHF and it will be difficult to diurese her because of the filling pressure need. 2. At the present time, I would stop her fluids and be guided by end organ response. 3. I considered a central line but CVP pressure, by itself, is not going to be useful secondary to mitral stenosis, though the trend may be helpful. 4. Await formal echo report, though preliminary by verbal report it is not much different than it was 2 weeks ago when it was known that she had at least moderate pulmonary hypertension and severe mitral stenosis (MS). Perhaps, the pulmonary hypertension has slightly worsened. 5. Even use of CPAP/bilevel is tricky as while afterload reduction may be beneficial in regards to left ventricular function, preload reduction could worsen the LV volume. 6. I strongly recommend cardiology emergently evaluate the patient. I do not know if there is any procedure such as valvuloplasty that could be done to help alleviate the situation. If we cannot do not do any intervention, I do no suspect that this is survivable. 7. I updated the family with what was known pending further information by cardiology. 8. Once cardiology is on board, they should manage fluid, as noted previously it will be difficult to manage given the need for filling pressure and the need for diuresis. CRITICAL CARE TIME: 60 minutes, not including procedure time. HANNAH
[2018-10-28 10:13] LABS: ACETYLCHOLINE RCPTOR BLOCK AB 14 % (0-25); ACETYLCHOLINE RCPTOR MODULATIN <12 % (0-20)
--- NOTE | 2018-11-15 13:35 | DSES ---
DATE OF ADMISSION: 10/16/2018 DATE OF DISCHARGE: 10/18/2018 CAUSE OF : Mitral stenosis. SECONDARY CAUSE: Congestive heart failure. SECONDARY DIAGNOSES: 1. Dysphagia. 2. Hypercapnic respiratory failure. 3. Subacute CVA. 4. Acute kidney injury. 5. Chronic diastolic dysfunction. 6. Aortic valve replacement. HOSPITAL COURSE: 78-year-old female who presented with dysphagia, dysarthria and vertigo. She was seen and evaluated and admitted to the hospitalist service with a concern for possible CVA. She was found to have a subacute CVA, however, her symptoms progressed and she began to have respiratory distress prompting transfer to the medical intensive care unit. She was found to be in pulmonary edema and although she presented with acute kidney injury and vertigo she was provided with very gentle IV fluids. Prior to this, there was some initial concern that it may have been related to an aspiration event. Upon an eventful, 10/17/2017 day, she was seen and evaluated by pulmonary. We were able to obtain old records. The case was discussed extensively with Dr. Tinoco on numerous occasions throughout the day who presented bedside to evaluate her and speak with the patient. It was felt that the patient's respiratory failure and pulmonary edema were secondary to progression of her severe mitral stenosis. This was likely related to rheumatic disease. Given her overall poor prognosis, Dr. Tinoco and I both agreed she was not a candidate for any operative repair. The patient's family did elect for comfort measures only. Thereafter, she did quickly decline. She was kept comfortable. Please see progress note from today's date for full physical exam and problem list. Greater than one hour was spent personally orchestrating care and attending to end of life care.
== END 2018-10-18 00:15 | disposition expired | DRG 64 ==
LOC: M ED 22:29 → EDBD 22:29 → M ED INP 10-16 01:40 → M MSPAV 10-16 03:00 → M ICU 10-17 03:25
PROVIDERS: ADMIT Internal Medicine; ATTEND Internal Medicine
DX: I63.532 Cerebral infarction due to unspecified occlusion or stenosis of left posterior cerebral artery (principal); J96.02 Acute respiratory failure with hypercapnia; I50.32 Chronic diastolic (congestive) heart failure; I13.0 Hypertensive heart and chronic kidney disease with heart failure and stage 1 through stage 4 chronic kidney disease, or unspecified chronic kidney disease; N17.9 Acute kidney failure, unspecified; J81.1 Chronic pulmonary edema; Z68.41 Body mass index [BMI] 40.0-44.9, adult; E78.5 Hyperlipidemia, unspecified; R42 Dizziness and giddiness; Z51.5 Encounter for palliative care; Z66 Do not resuscitate; N18.3 Chronic kidney disease, stage 3 (moderate); R13.10 Dysphagia, unspecified; R47.1 Dysarthria and anarthria; I34.2 Nonrheumatic mitral (valve) stenosis; I27.20 Pulmonary hypertension, unspecified; G47.33 Obstructive sleep apnea (adult) (pediatric); E66.01 Morbid (severe) obesity due to excess calories; Z85.038 Personal history of other malignant neoplasm of large intestine; Z96.651 Presence of right artificial knee joint; Z79.82 Long term (current) use of aspirin; Z95.1 Presence of aortocoronary bypass graft; Z95.3 Presence of xenogenic heart valve; Z98.41 Cataract extraction status, right eye; Z98.42 Cataract extraction status, left eye; Z79.899 Other long term (current) drug therapy